=== PATIENT | male | born 1990 | race Caucasian/White ===

== ENCOUNTER 2025-08-06 21:27 | Emergency (ER) | payer OTHER, SELFPAY ==
[2025-08-06 21:34] VITALS: PULSE 81; RESP 16; TEMP 37.2; O2SAT 97; BMI 21.9
--- NOTE | 2025-08-06 21:51 | ED_ITS ---
HPI - Eye Problem General Time Seen by Provider: 21:51 Date Seen: 08/06/25 Chief complaint: Eye Problems Stated complaint: something in L eye Time Seen by Provider: 08/06/25 21:51 Source: patient Mode of arrival: ambulatory History of Present Illness HPI Narrative: Ilya is a 34-year-old male with no significant past medical history who presents the emergency department for evaluation of eye pain. Patient reports that he works as a [employer] and reports approximately 1 hour after work around 7:30 p.m. he noticed discomfort to his left eye. Patient reports pain, irritation to his left sinus concerned that maybe he got something in his eye. Patient reports he has always had bad vision in his left eye and denies any new vision changes tonight. Patient denies any headache, nausea, vomiting, fever, chills. No other complaints. Related Data Allergies Allergy/AdvReac Type Severity Reaction Status Date / Time No Known Drug Allergies Allergy Verified 08/06/25 21:37 Review of Systems Narrative: Past medical history, past surgical history, medications, allergies, family history, and social history were reviewed with the patient. No additional pertinent items. A medically appropriate review of systems was performed with pertinent positives and negatives noted in HPI, all other systems negative. Exam Narrative: Exam Narrative: General: Afebrile, in distress secondary to pain HEENT: Normocephalic, atraumatic, PERRL, EOMI, no foreign body identified, left eye with mild conjunctiva erythema, fluorescein exam with no large corneal abrasion. MMM Neck: non-tender, supple Cardio: regular rate. regular rhythm Resp: Normal work of breathing, no respiratory distress, lungs clear bilaterally, no wheezing, rhonchi, rales Chest/Back: no visual signs of trauma, no midline tenderness, no CVA tenderness Abdomen: soft, non distension, no tenderness, no peritoneal signs Neuro: alert and fully oriented. CN II-XII grossly intact. Grossly normal strength and sensation in all extremities. MSK: no deformities. Normal range of motion Integumentary/Skin: no rash visualized, normal color Psych: normal affect, normal behavior Const: Vital Signs, click to edit/add: Vital Signs - 24 hr 08/06/25 21:34 Temperature 99.0 F Pulse Rate [Right Pulse Oximeter] 81 Respiratory Rate 16 Pulse Oximetry 97 Oxygen Delivery Me thod Room Air Course Vital Signs Vital signs: Initial Vital Signs Temperature 99.0 F 08/06/25 21:34 Temperature Source Temporal Artery Scan 08/06/25 21:34 Pulse Rate 81 08/06/25 21:34 Pulse Rhythm Regular 08/06/25 21:34 Pulse Strength 3+ Normal 08/06/25 21:34 Respiratory Rate 16 08/06/25 21:34 Pulse Oximetry 97 08/06/25 21:34 Oxygen Delivery Method Room Air 08/06/25 21:34 Vital Signs Temperature 99.0 F 08/06/25 21:34 Pulse Rate 81 08/06/25 21:34 Respiratory Rate 16 08/06/25 21:34 Pulse Oximetry 97 08/06/25 21:34 Oxygen Delivery Method Room Air 08/06/25 21:34 Temperature 99.0 F 08/06/25 21:34 Pulse Rate 81 08/06/25 21:34 Respiratory Rate 16 08/06/25 21:34 Pulse Oximetry 97 08/06/25 21:34 Oxygen Delivery Method Room Air 08/06/25 21:34 Medications Administered Medications: Discontinued Medications Generic Name Dose Route Start Last Admin Trade Name Freq PRN Reason Stop Dose Admin Acetaminophen 1,000 mg 08/06/25 23:08 08/06/25 23:14 Acetaminophen 500 Mg Tablet PO 08/06/25 23:09 1,000 mg ONCE ONE Administration Ibuprofen 600 mg 08/06/25 23:08 08/06/25 23:15 Ibuprofen 200 Mg Tablet PO 08/06/25 23:09 600 mg ONCE ONE Administration MDM - Eye Problem MDM Narrative Medical decision making narrative: Ilya is a 34-year-old male with no significant past medical history who presents the emergency department for evaluation of left eye pain. Upon arrival patient is nontoxic appearing, afebrile, in distress secondary to discomfort. Patient hemodynamically stable vital signs within normal limits. Visual acuity in the right eye 20/15, left eye 20/70 (patient reports he normally cannot see out of his left eye). On examination no evidence of any obvious foreign body, patient was treated with tetracaine with significant improvement of discomfort, Wood's lamp with no obvious corneal abrasion. Eyes were irrigated. Given patient's symptoms, line of work, concern for some possible inflammatory/irritation/keratitis. Patient was also treated with Tylenol, ibuprofen. At this time recommend discharge with artificial tears, low suspicious for acute infection however will give him a dose of erythromycin ophthalmic ointment tonight to help with discomfort and recommend him following up with Ophthalmology in clinic tomorrow for complete eye examination. Patient is agreeable to this plan and strict return precautions discussed. Differential Diagnosis Differential diagnosis: Likely corneal abrasion, conjunctivitis, acute iritis, periorbital cellulitis and corneal ulcer Medical Records Attestation: I reviewed the patient's medical records. Discharge Plan Discharge Clinical Impression: Acute left eye pain Patient Disposition: Home, Self-Care Condition: Improved Additional Instructions: Please follow-up with [facility] in [place] for complete eye examination. Please call in the morning to schedule an appointment and let them know you were in the emergency department last night. [facility] [address] [place] [address] Please take Tylenol 1000 mg and ibuprofen 600 mg every 6 hours as needed for pain. Please use preservative-free artificial tears 4-6 times daily. Please use antibiotic ointment 4 times daily (until seen by eye doctor). Please return to the emergency department if any worsening symptoms. It was a pleasure taking care of you today. We hope you feel better soon. Follow Up/Referrals: Provider,Not a Local [Primary Care Provider, Family Practice] Stand Alone Forms: [employer] Info Instructions
[2025-08-06] MEDS: ACETAMINOPHEN 500 MG TABLET 1000 MG PO (23:14)
[2025-08-06] MEDS: IBUPROFEN 200 MG TABLET 600 MG PO (23:15)
== END 2025-08-06 23:24 | disposition home or self-care (01) ==
PROVIDERS: Emergency Provider Emergency Medicine
DX: H57.12 Ocular pain, left eye (principal); Y93.H3 Activity, building and construction
CPT/HCPCS: 99283; 99284; A9270